=== PATIENT | male | born 1975 | race American Indian/Alaskan Native ===

== ENCOUNTER 2017-01-03 14:43 | Inpatient (IN) | payer MEDICAID ==
--- NOTE | 2017-01-03 15:27 | C.PDOC ---
History Of Present Illness Pt is here requesting detox from Heroin. Time Seen by Provider: 01/03/17 15:00 Chief Complaint (Nursing): Substance Abuse History Per: Patient Onset/Duration Of Symptoms: Days Current Symptoms Are (Timing): Still Present Suicide/Self Injury Attempted (Context): None Modifying Factor(s): Narcotics Severity: Moderate Associated Symptoms: denies: Suicidal Thoughts, Suicidal Plan Additional History Per: Prior Records Past Medical History Reviewed: Historical Data, Nursing Documentation, Vital Signs Vital Signs: Last Vital Signs Temp 97.4 F L 01/03/17 14:56 Pulse 53 L 01/03/17 14:56 Resp 18 01/03/17 14:56 BP 121/79 01/03/17 14:56 Pulse Ox 99 01/03/17 15:27 - Medical History PMH: Asthma Surgical History: No Surg Hx Family History: States: Unknown Family Hx - Social History Hx Tobacco Use: Yes Hx Alcohol Use: Yes Hx Substance Use: Yes (Snorts Heroin) - Immunization History Hx Tetanus Toxoid Vaccination: Yes Hx Influenza Vaccination: Yes Hx Pneumococcal Vaccination: Yes Review Of Systems Except As Marked, All Systems Reviewed And Found Negative. Constitutional: Negative for: Fever, Weakness Cardiovascular: Negative for: Chest Pain Respiratory: Negative for: Shortness of Breath Gastrointestinal: Negative for: Vomiting, Abdominal Pain Musculoskeletal: Negative for: Neck Pain Skin: Negative for: Rash Neurological: Negative for: Weakness, Numbness, Seizures, Altered Mental Status Psych: Negative for: Psychosis Physical Exam - Physical Exam Appears: Non-toxic, No Acute Distress Skin: Normal Color, Warm, Dry, No Rash Head: Atraumatic, Normacephalic Eye(s): bilateral: PERRL, EOMI Neck: Normal ROM, Supple Cardiovascular: Rhythm Regular Respiratory: Normal Breath Sounds, No Accessory Muscle Use Gastrointestinal/Abdominal: Soft, No Tenderness Extremity: Normal ROM, No Deformity Neurological/Psych: Oriented x3, Normal Motor, Normal Sensation ED Course And Treatment - Laboratory Results Result Diagrams: 01/03/17 15:33 01/03/17 15:33 Lab Interpretation: No Acute Changes O2 Sat by Pulse Oximetry: 99 Pulse Ox Interpretation: Normal Progress Note: Pt is medically stable for detox admission. Disposition Counseled Patient/Family Regarding: Studies Performed, Diagnosis, Smoking Cessation - Disposition Disposition: HOSPITALIZED Disposition Time: 16:52 Condition: STABLE - Clinical Impression Clinical Impression: Opioid use disorder, severe, dependence Decision To Admit - Pt Status Changed To: Hospital Disposition Of: Inpatient - Admit Certification Admit to Inpatient:: After my assessment, the patient will require hospitalization for at least two midnights. This is because of the severity of symptoms shown, intensity of services needed, and/or the medical risk in this patient being treated as an outpatient. - InPatient: Physician Admission Certification: I certify that this patient requires 2 or more midnights of care for the following reason:: Detox. - . Bed Request Type: Detox Admitting Physician: Pippa Garcia Patient Diagnosis: Opioid use disorder, severe, dependence
[2017-01-03 15:36] LABS: BASO % 0.3 % (0.0-2.0); EOS # 0.5 K/uL (0.0-0.7); EOS % 8.5 % (0.0-4.0); HEMATOCRIT 41.7 % (35.0-51.0); LYMPH # 1.6 K/uL (1.0-4.3); LYMPH % 30.2 % (20.0-40.0); MEAN CORPUSCULAR HGB CONC 33.4 g/dL (33.0-37.0); MEAN PLATELET VOLUME 8.7 fL (7.2-11.7); MONO # 0.6 K/uL (0.0-0.8); MONO % 10.8 % (0.0-10.0); NRBC % 0.1 % (0.0-2.0); RED CELL DISTRIBUTION WIDTH 14.4 % (11.5-14.5); WHITE BLOOD COUNT 5.4 K/uL (4.8-10.8)
[2017-01-03 15:39] LABS: RBC URINE 3 /hpf (0-3); URINE BILIRUBIN NEGATIVE (NEGATIVE); URINE BLOOD NEGATIVE (NEGATIVE); URINE COLOR Yellow (YELLOW); URINE GLUCOSE (UA) NORMAL (Normal); URINE KETONE NEGATIVE (NEGATIVE); URINE LEUKOCYTE ESTERASE NEG Leu/uL (Negative); URINE PROTEIN NEGATIVE (NEGATIVE); WBC URINE 1 /hpf (0-5)
[2017-01-03 15:46] LABS: CHLORIDE 96 mmol/L (98-107); POTASSIUM 3.6 mmol/L (3.6-5.2); SODIUM 135 mmol/L (132-148)
[2017-01-03 15:48] LABS: BILIRUBIN,TOTAL 0.7 mg/dL (0.2-1.3); CARBON DIOXIDE 30 mmol/L (22-30); GFR AFRICAN-AMERICAN > 60
[2017-01-03 15:49] LABS: ALB/GLOB RATIO 1.5 (1.0-2.1); ALKALINE PHOSPHATASE 63 U/L (38-126); ALT/SGPT 28 U/L (21-72); AST/SGOT 36 U/L (17-59); BLOOD UREA NITROGEN 12 mg/dL (9-20); CALCIUM 8.4 mg/dl (8.6-10.4); GLUCOSE,RANDOM 127 mg/dL (75-110); TOTAL PROTEIN 6.9 g/dL (6.3-8.3)
[2017-01-03 15:50] LABS: ALCOHOL SERUM < 10 mg/dl (0-10)
[2017-01-04] MEDS ORDERED: Albuterol HFA 90 mcg/actuation (8 g) IH PRN (07:41)
[2017-01-04] MEDS ORDERED: Aluminum Hydroxide/Magnesium Hydroxide Susp (30 mL) PO PRN (10:28)
--- NOTE | 2017-01-04 12:21 | PCM.PSYCH ---
Initial Psychiatric Evaluation - Initial Psychiatric Evaluation Type of Admission: Voluntary Legal Status: Capacity Chief Complaint (in patient's own words): "want to quit heroin" Patient's Reaction to Hospitalization: voluntarily wants to do detox History of Present Illness and Precipitating Events: Patient is a 41 year old male with PMHx of asthma who presented voluntarily to get detox for cocaine and heroin. Patient says he started using heroin 8 years ago. He got clean after a detox and stay with [facility] but relapsed 1.5 years ago after a break up. He snorts 4 bags per day, 6 bags at the most. Last time he used with yesterday morning. Patient also reports smoking cocaine for the past 1.5 years and he started using cocaine when he was 19 years ago (on and off since). Patient does not drink alcohol and has never used IV drugs. Patient has previously been hospitalized for bipolar disorder and major depression at [facility] twice for suicidal attempts. His last suicidal attempt was 6 months ago. Patient has experienced manic episodes lasting 2-3 days where he feels like he has a lot of energy and feels very confident. He says he cannot sleep during these periods so he cleans instead. He denies doing anything reckless during these times. Patient does report getting into fights in the past but says this does not coincide with the times when he feels manic. Patient denies any feelings of depression, sadness, thoughts of hurting himself or others now. Patient denies every feeling paranoid or having hallucinations. Patient lives with his mother and is unemployed. He previously worked at [employer] 6 weeks ago. Patient is single and does not have any children. PMHx: asthma Psychiatric history: bipolar disorder and major depression, moderate, recurrent without psychotic elements Psychiatric hospitalizations: 2 hospitalizations at [facility] in [place], [place] for suicide attempts Family psychiatric history: Mother has depression Current Medications: Active Medications Generic Name Dose Route Start Last Admin Trade Name Freq PRN Reason Stop Dose Admin Al Hydrox/Mg Hydrox/Simethicone 30 ml 01/04/17 10:28 Maalox 30 Ml PO TID PRN Indigestion / Heartburn Albuterol 1 puff 01/04/17 07:41 Ventolin Hfa 90 Mcg/Actuation (8 G) IH RQ4 PRN Shortness of Breath Clonidine HCl 0.1 mg 01/04/17 10:28 Catapres PO Q8 PRN COWS Score More or Equal to 5 Loperamide HCl 2 mg 01/04/17 10:28 Imodium PO Q8 PRN Diarrhea Ondansetron HCl 4 mg 01/04/17 10:28 Zofran Tab PO Q8 PRN Nausea/Vomiting Quetiapine Fumarate 200 mg 01/03/17 22:00 01/03/17 22:14 Seroquel PO 200 mg HS YOLETTE Administration Past Psychiatric History - Past Psychiatric History Previous Treatment History: Inpatient Prior Professional Help: yes Prior Psychiatric Treatment: Detox and psychiatry admissions At [facility]: [facility] x2 History of Family Illness: mother - depression Pertinent Medical Hx (Current Medical&Sleep Prob, Allergies): Allergies Allergy/AdvReac Type Severity Reaction Status Date / Time No Known Allergies Allergy Verified 01/03/17 15:09 Albuterol HFA [Ventolin HFA 90 mcg/actuation (8 g)] 1 puff IH DAILY PRN Review of Systems - Constitutional Constitutional: absent: Fever, Chills - Cardiovascular Cardiovascular: absent: Chest Pain - Respiratory Respiratory: absent: Dyspnea - Gastrointestinal Gastrointestinal: Abdominal Pain. absent: Constipation, Diarrhea, Nausea, Vomiting - Musculoskeletal Musculoskeletal: absent: Back Pain Mental Status Examination - Personal Presentation Personal Presentation: Looks stated age, Dressed appropriate to season - Affect Affect: Broad - Motor Activity Motor Activity: Calm - Reliability in Providing Information Reliability in Providing Information: Good - Speech Speech: Organized, Relevant - Mood Mood: Neutral - Formal Thought Process Formal Thought Process: No Impairment - Obsessions/Compulsions Obsessions: No Compulsions: No - Cognitive Functions Orientation: Person, Place, Situation, Time Sensorium: Alert Attention/Concentration: Attentive Estimate of Intelligence: Average Judgement: Intact, as evidence by: Good judgement Memory: Recent intact, as evidence by: Ability to recall events of the day, Remote intact, as evidenced by: Abilit to recall sig. life events - Risk Risk: Withdrawal - Strength & Assets Inventory Strength & Assets Inventory: Life experience, Cooperative DSM 5 DX - DSM 5 DSM 5 Diagnosis: Opioid withdrawal Opioid use disorder History of Bipolar disorder without psychotic features History of asthma - Recommended/Plan of Treatment Treatment Recommendations and Plan of Treatment: - Subutex 6mg PO today, 4 mg PO tomorrow, 2mg PO Monday - As needed meds: Maalox 30ml PO TID PRN Clonidine 0.1mg PO Q8 PRN Imodium 2mg PO Q8 PRN Zofran 4mg PO Q8 PRN Seroquel 200mg PO HS - NC and CBT - Groups - Support - Ventolin inhaler as needed for SOB - Plan to discharge to [facility] in [place] on Monday Projected ELOS: 3 days Discharge Plan and Discharge Criteria: [facility]
[2017-01-04] MEDS ORDERED: Buprenorphine Hydrochloride 2 mg SL ONE ×2 (12:50→14:00)
[2017-01-05] MEDS ORDERED: Buprenorphine Hydrochloride 2 mg SL ONE (10:00)
--- NOTE | 2017-01-05 13:46 | PCM.PYCHPN ---
Psychiatric Progress Note - Psychiatric Progress Note Patient seen today, length of contact: 16 minutes Patient Chief Complaint: "want to quit heroin" Problems Identified/Issues Discussed: Patient seen and examined, chart reviewed, case discussed with staff. Patient reports diarrhea one time this AM. Patient said he slept on and off throughout the night. Patient denied fever, chills, chest pain, palpitations, nausea, vomiting, abdominal pain, feeling shaky. Symptoms are improving, but he needs more time to stabilize. After care discussed, support and psychoeducation given. Patient says he was accepted to [facility] in [place]. Medication Change: Yes (detox meds change daily) Medical Record Reviewed: Yes Mental Status Examination - Cognitive Function Orientation: Person, Place, Situation, Time - Mood Mood: Neutral - Affect Affect: Broad - Speech Speech: Appropriate - Formal Thought Process Formal Thought Process: No Impairment - Suicidal Ideation Suicidal Ideation: No - Homicidal Ideation Homicidal Ideation: No Goal/Treatment Plan - Goal/Treatment Plan Need for Continued Stay: Discharge may exacerbated symptoms Progress Toward Problem(s) and Goals/Treatment Plan: - Subutex 4mg PO today, 2 mg PO tomorrow - As needed meds: Maalox 30ml PO TID PRN Clonidine 0.1mg PO Q8 PRN Imodium 2mg PO Q8 PRN Zofran 4mg PO Q8 PRN Seroquel 200mg PO HS - [place] and CBT - Groups - Support - Ventolin inhaler as needed for SOB - Plan to discharge to [facility] on Monday Estimated Date of D/C: 01/06/17 - Smoking Cessation Smoking Cessation Initiated: No
[2017-01-05 15:26] VITALS: RESP 18
--- NOTE | 2017-01-06 08:52 | PCM.PYCHDC ---
Mental Status Examination - Mental Status Examination Orientation: Person, Place, Situation, Time Memory: Intact Mood: Neutral Affect: Constricted Speech: Soft Attention: WNL Concentration: WNL Association: WNL Fund of Knowledge: WNL Formal Thought Process: No Impairment Description of patient's judgement and insight: good, fair Psychotic Thoughts and Behaviors: denies any AVH Suicidal Ideation: No Current Homicidal Ideation?: No Discharge Summary - Discharge Note Reason for Hospitalization: Patient is a 41 year old male with PMHx of asthma who presented voluntarily to get detox for cocaine and heroin. Patient says he started using heroin 8 years ago. He got clean after a detox and stay with [facility] but relapsed 1.5 years ago after a break up. He snorts 4 bags per day, 6 bags at the most. Last time he used with yesterday morning. Patient also reports smoking cocaine for the past 1.5 years and he started using cocaine when he was 19 years ago (on and off since). Patient does not drink alcohol and has never used IV drugs. Patient has previously been hospitalized for bipolar disorder and major depression at [facility] twice for suicidal attempts. His last suicidal attempt was 6 months ago. Patient has experienced manic episodes lasting 2-3 days where he feels like he has a lot of energy and feels very confident. He says he cannot sleep during these periods so he cleans instead. He denies doing anything reckless during these times. Patient does report getting into fights in the past but says this does not coincide with the times when he feels manic. Patient denies any feelings of depression, sadness, thoughts of hurting himself or others now. Patient denies every feeling paranoid or having hallucinations. Patient lives with his mother and is unemployed. He previously worked at [employer] 6 weeks ago. Patient is single and does not have any children. Consultations:: List each consultation separately and include: 1. Reason for request. 2. Findings. 3. Follow-up Summary of Hospital Course include:: 1. Description of specific treatment plan utilized for patients during their course of treatmen. 2. Summarize the time- course for resolution of acute symptoms and/or regressed behaviors. 3. Describe issues identified and worked on during hospitalization. 4. Describe medication utilized. 5. Describe medical problems identified and treated. 6. Reassessment of suicide risk Summary of Hospital Course: During the course of his stay, patient (pt) started progressively improving and he no longer remained anxious and irritable. He tolerated the withdrawal protocol very well. He didnt have any shakes, sweating or any other withdrawal symptoms. He started attending groups and meetings and started socializing. Denied any feelings of hopelessness, helplessness, and worthlessness, denied any problem with the sleep or appetite, denied suicidal ideation or homicidal ideation. Pt denied any auditory or visual hallucinations. Patient remained calm and cooperative and remained compliant with the medications. Patient tolerated the detox medications very well and denied any side effects. - Final Diagnosis (DSM 5) Condition upon Discharge: STABLE DSM 5: Opioid withdrawal Opioid use disorder History of Bipolar disorder without psychotic features Disposition: HOME/ ROUTINE Follow-up Treatment Plan: Education: Pt was educated and counseled about the risks and benefits of taking and not taking medications. Pt was educated and counseled about the risks of drinking and abusing drugs. Pt was educated and counseled to go to the ER or call 911 if pt develop suicidal ideation or homicidal ideation, worsening of symptoms or severe side effects of the meds. Prescriptions/Medication Reconciliation: Albuterol HFA [Ventolin HFA 90 mcg/actuation (8 g)] 1 puff IH DAILY PRN #1 PRN Reason: Shortness Of Breath QUEtiapine [SEROquel] 200 mg PO HS #30 tab
[2017-01-06] MEDS ORDERED: Buprenorphine Hydrochloride 2 mg SL ONE ×2 (09:00→10:15)
[2017-01-06 10:15] VITALS: BP 108/71; PULSE 67; TEMP 97.6; O2SAT 99
== END 2017-01-06 10:15 | disposition home or self-care (01) | DRG 745 ==
LOC: C.ER 14:43 → C.7D 16:52
PROVIDERS: ADMIT Psychiatry & Neurology Psychiatry; ATTEND Psychiatry & Neurology Psychiatry
DX: F11.23 Opioid dependence with withdrawal (principal); F31.9 Bipolar disorder, unspecified; F14.90 Cocaine use, unspecified, uncomplicated; J45.909 Unspecified asthma, uncomplicated; Z91.5 Personal history of self-harm